=== PATIENT | male | born 1985 ===

== ENCOUNTER 2019-02-24 23:10 | Emergency (ER) | payer SELFPAY ==
[2019-02-24 23:26] VITALS: BP 122/85; PULSE 91; RESP 16; TEMP 100.2; O2SAT 98
--- NOTE | 2019-02-25 00:06 | C.PDOC ---
History Of Present Illness 33 year old male presents to the ED complaining of pain in throat, fever, chills, body ache, and a headache that began today. Patient states at 8pm he took 1 Diclofenac with no improvements. He denies any travel outside of the [place] or any sick contact. Time Seen by Provider: 02/24/19 23:41 Chief Complaint (Nursing): Flu-like Symptoms History Per: Patient History/Exam Limitations: None Onset/Duration Of Symptoms: Hrs Current Symptoms Are (Timing): Still Present Symptoms Have Been: Continuous Past Medical History Reviewed: Historical Data, Nursing Documentation, Vital Signs Vital Signs: Last Vital Signs Temp 100.2 F H 02/24/19 23:24 Pulse 91 H 02/24/19 23:24 Resp 16 02/24/19 23:24 BP 122/85 02/24/19 23:24 Pulse Ox 98 02/24/19 23:24 Primary Care Provider: FAMILY PROVIDER,NO - [facility] INJECT/INFUSE NEC (07/13/14) TETANUS TOXOID ADMINIST (07/13/14) Family History: States: Unknown Family Hx - Social History Hx Alcohol Use: No Hx Substance Use: No - Immunization History Hx Tetanus Toxoid Vaccination: No Hx Influenza Vaccination: No Hx Pneumococcal Vaccination: No Review Of Systems Constitutional: Positive for: Fever, Chills, Sweats Eyes: Negative for: Redness, Other (scleral icterus) ENT: Positive for: Throat Pain. Negative for: Nose Discharge, Nose Congestion, Mouth Swelling Cardiovascular: Negative for: Chest Pain Respiratory: Negative for: Cough, Shortness of Breath Gastrointestinal: Negative for: Nausea, Vomiting, Diarrhea Genitourinary: Negative for: Dysuria, Hematuria Musculoskeletal: Positive for: Other (body aches) Neurological: Positive for: Headache. Negative for: Weakness, Numbness Physical Exam - Physical Exam Appears: Well, Non-toxic Skin: Normal Color, Warm, Dry Head: Atraumatic, Normacephalic Eye(s): bilateral: Normal Inspection, PERRL, EOMI, Scleral Icterus (none) Ear(s): Bilateral: Normal Oral Mucosa: Moist Throat: Exudate, Other (enlarged tonsils bilaterally; airway patent; uvula midline) Neck: Supple, No Other (ridgidity) Chest: Symmetrical Cardiovascular: Rhythm Regular, No Murmur Respiratory: No Accessory Muscle Use, Other (normal inspiratory effort) Gastrointestinal/Abdominal: Soft, No Distention Extremity: Bilateral: Atraumatic Pulses: Left Radial: Normal, Right Radial: Normal Neurological/Psych: Oriented x3, Normal Cranial Nerves (grossly intact) ED Course And Treatment O2 Sat by Pulse Oximetry: 98 (RA) Pulse Ox Interpretation: Normal Medical Decision Making Medical Decision Making: Plan: Ibuprofen and Amoxil ordered. Disposition Counseled Patient/Family Regarding: Diagnosis, Need For Followup, Rx Given - Disposition Disposition: HOME/ ROUTINE Disposition Time: 00:05 Condition: STABLE Prescriptions: Amoxicillin 500 mg PO TID #15 tablet Ibuprofen [Motrin Tab] 800 mg PO TID PRN #21 tab PRN Reason: Pain, Moderate (4-7) Instructions: Sore Throat, Adult (DC) Forms: Gen Discharge Inst [place]ican, [facility] ([place]ican), Work Excuse - Clinical Impression Clinical Impression: Acute tonsillitis - Scribe Statement The provider has reviewed the documentation as recorded by the Scribe (Lissa Rush) All medical record entries made by the Scribe were at my direction and personally dictated by me. I have reviewed the chart and agree that the record accurately reflects my personal performance of the history, physical exam, medical decision making, and the department course for this patient. I have also personally directed, reviewed, and agree with the discharge instructions and disposition.
== END 2019-02-25 00:10 | disposition home or self-care (01) ==
LOC: C.ER 23:10
DX: J03.90 Acute tonsillitis, unspecified (principal)